=== PATIENT | female | born 1975 | race Caucasian/White ===

== ENCOUNTER 2017-03-30 17:58 | Emergency (ER) | payer SELFPAY ==
[~2017-03-30] VITALS: Ht 157.5 cm; Wt 48.6 kg
[2017-03-30 18:03] VITALS: BP 115/75
== END 2017-03-30 18:46 | disposition left against medical advice (07) ==
LOC: ED 18:40
DX: R10.9 Unspecified abdominal pain (principal); Z53.21 Procedure and treatment not carried out due to patient leaving prior to being seen by health care provider